=== PATIENT | female | born 1955 | race Caucasian/White ===

== ENCOUNTER 2016-12-15 06:34 | Inpatient (IN) | payer BC ==
[2016-11-19 13:31] VITALS: BMI 31.0
--- NOTE | 2016-11-19 14:08 | PAT Medication Instructions ---
Service Date November 19, 2016. Current Home Medication List Albuterol Hfa (Ventolin Hfa), 2-4 PUFFS INH Q6H PRN for PRN Aspirin (Aspirin Ec), 81 MG PO QAM Benazepril (Lotensin), 20 MG PO QAM Biotin (Biotin), 5,000 MCG PO QAM Cinnamon (Cinnamon), 1,000 MG PO BID Fish Oil ([place]-3), 1 CAP PO QAM Hydrochlorothiazide (Hydrochlorothiazide), 1 TAB PO QAM Meloxicam (Mobic), 15 MG PO QPM Niacin (Niacin), 500 MG PO QAM Simvastatin (Zocor), 20 MG PO HS Turmeric (Curcuma Longa) (Turmeric), 1,000 MG PO QPM [Calcium], 600 MG PO QAM [Glucosamine D], 1 TAB PO QPM Medication Instructions For Your Scheduled Surgery - Check with surgeon for instructions: Meloxicam (Mobic), 15 MG PO QPM - Hold the following medications 2 weeks prior to surgery: [Glucosamine D], 1 TAB PO QPM Turmeric (Curcuma Longa) (Turmeric), 1,000 MG PO QPM Cinnamon (Cinnamon), 1,000 MG PO BID Fish Oil ([place]-3), 1 CAP PO QAM - Hold the following medications the morning of surgery: [Calcium], 600 MG PO QAM Niacin (Niacin), 500 MG PO QAM Hydrochlorothiazide (Hydrochlorothiazide), 1 TAB PO QAM Benazepril (Lotensin), 20 MG PO QAM Biotin (Biotin), 5,000 MCG PO QAM - Take the following medications the morning of surgery with a sip of water: Albuterol Hfa (Ventolin Hfa), 2-4 PUFFS INH Q6H PRN for PRN (bring with you to hospital morning of surgery) Aspirin (Aspirin Ec), 81 MG PO QAM - Take the following medications as scheduled the night before surgery: Simvastatin (Zocor), 20 MG PO HS Albuterol Hfa (Ventolin Hfa), 2-4 PUFFS INH Q6H PRN for PRN If you have any questions please call us at [phone] (Alyssa Kidd PA-C ) or [phone] or [phone]
--- NOTE | 2016-11-19 14:36 | DIAGNOSTIC IMAGING REPORT ---
CHEST PREADMISSION(PA/LAT) CLINICAL HISTORY: Preoperative chest COMPARISON STUDY: No previous studies for comparison. FINDINGS: The cardiac and mediastinal contours are normal. There is no evidence of focal pulmonary consolidation. There is no evidence of failure. No pleural effusions are visualized.[ There is mild basilar interstitial thickening/atelectasis. There are postsurgical changes present within the cervical spine. IMPRESSION: No active disease in the chest. Electronically signed by: Luis Angel Portillo M.D. 11/19/2016 2:35 PM Dictated Date/Time: 11/19/2016 2:34 PM
[2016-11-19 15:02] LABS: BASO % 0.2 %; BASO ABS # 0.01 K/uL (0-0.2); COMPLETE YES; EOS % 4.2 %; HEMATOCRIT 42.7 % (37-47); LYMPH % 23.5 %; LYMPH ABS # 1.35 K/uL (1.2-3.4); MEAN CELL VOLUME 82.8 fL (80-100); MEAN CORPUSCULAR HEMOGLOBIN 26.2 pg (25-34); MEAN CORPUSCULAR HGB CONC 31.6 g/dl (32-36); MEAN PLATELET VOLUME 9.5 fL (7.4-10.4); MONO % 5.9 %; NEUT % 66.2 %; PLATELET COUNT 256 K/uL (130-400); RED BLOOD COUNT 5.16 M/uL (4.2-5.4); WHITE BLOOD COUNT 5.74 K/uL (4.8-10.8)
[2016-11-19 15:11] LABS: BUN/CREATININE RATIO 23.8 (10-20); CALCIUM 9.3 mg/dl (8.5-10.1); CREATININE 0.83 mg/dl (0.60-1.20); POTASSIUM 4.1 mmol/L (3.5-5.1)
[2016-11-19 15:21] LABS: URINE APPEARANCE CLEAR (CLEAR); URINE BILIRUBIN NEG (NEG); URINE COLOR YELLOW; URINE NITRITE NEG (NEG); URINE SPECIFIC GRAVITY 1.016 (1.000-1.030); UROBILINOGEN NEG (NEG); ZZUR CULT IF INDIC CLEAN CATCH NO
[2016-11-19 15:23] LABS: INR 0.9 (0.9-1.1); PARTIAL THROMBOPLASTIN RATIO 1.1; PROTHROMBIN TIME (PATIENT) 9.9 SECONDS (9.0-12.0)
[2016-11-19 15:29] LABS: MANUAL MICROSCOPIC REQUIRED? NO; REVIEW REQ? NO
[2016-12-15] VITALS (10 sets, daily range): BP systolic 92–162; BP diastolic 56–80; PULSE 54–87; TEMP 36.5–36.7; O2SAT 95–100; Ht 167.6 cm; Wt 87.0 kg
[~2016-12-15] VITALS: Ht 167.6 cm; Wt 87.0 kg
[2016-12-15] MEDS: TRANEXAMIC ACID INJ 1,000 MG in SODIUM CHLORIDE 0.9% 100ML 100 ML IV SCH ×2 (06:30→08:12)
[~2016-12-15 06:34] MED LIST: ACETAMINOPHEN 500 MG TAB PO SCH; ASPI81TA28 PO; BENA20TA14 PO; BIOT1CAP3 PO; BUPIVACAINE 0.25% 30 ML VIAL ONE; BUPIVACAINE 0.5 % 5 MG/1 ML PF 10ML VIAL ONE; CALC-51 PO; CEFAZOLIN 2000 MG/60 ML D5W 60 ML IV SCH; CINN1CAP2 PO; FAMOTIDINE 20 MG TAB PO SCH; GABAPENTIN 300 MG CAP PO SCH; HYDR12.55 PO; LACTATED RINGER'S 1000ML 1,000 ML IV SCH; LACTATED RINGER'S 1000ML 500 ML IV ONE; LACTATED RINGER'S 1000ML IV SCH; MELO7.5T5 PO; METOCLOPRAMIDE HCL 10 MG TAB PO SCH; NIAC500T11 PO; OMEG10007 PO; OXYCODONE HCL 10 MG TABCR (OXYCONTIN) PO SCH; POLYMYXIN B SULFATE 100,000 UNITS in NSS 100ML IR SCH; ROPIVACAINE 5MG/ML 30 ML 150 MG, BUPIVACAINE/EPINEPHR 0.5% MPF 30 ML, KETOROLAC TROMETH... INFIL SCH; SIMV20TA2 PO; TURM500T PO; VANCOMYCIN INJ 400 MG in NSS 100ML IR SCH; VNTHFA/IN INH; [UNRECOGNIZED DRUG - OTHER] PO
[2016-12-15] MEDS ORDERED: MIDAZOLAM HCL 1 MG/ML 2ML VIAL ONE (06:42)
--- NOTE | 2016-12-15 06:47 | History and Physical ---
History & Physical Date December 15, 2016. Chief Complaint R KNEE PAIN History of Present Illness The patient is a 61 year old female with complaints of R GREATER THAN L KNEE PAIN FOR OVER 3 YEARS . 9/10 AFFECTS ADLS CANNOT WALK 1 BLOCK. HAS TRIED BRACING PHYSICAL THERAPY AND INJECTIONS WITHOUT RELIEF . XRAYS CW SEVERE OA OF KNEES W VARUS DEFORMITY. Additional History Hepatic Disease: No Endocrine Disorder: Yes Hypertension: Yes Heart Disease: No Bleeding Tendencies: No Infectious Diseases: No Other: ASTHMA, HYPERLIPIDEMEA Allergies Coded Allergies: Aromatic Oils (Verified Allergy, Unknown, DRY THROAT COUGHING, ITCHY EYES, STUFFY NOSE, 12/09/16) Buckwheat (Verified Allergy, Unknown, WITH BUCKWHEAT PANCAKES-SOB,HIVES, ) BUCKWHEAT CONTACT ITCHY SKIN POLLEN (Verified Allergy, Unknown, STUFFY NOSE,ITCHY EYES, 12/09/16) Sulfa Antibiotics (Verified Allergy, Unknown, BLUE HANDS AND FEET, LIPS, ) Home Medications Scheduled Aspirin (Aspirin Ec), 81 MG PO QAM Benazepril (Lotensin), 20 MG PO QAM Biotin (Biotin), 5,000 MCG PO QAM Cinnamon (Cinnamon), 1,000 MG PO BID Fish Oil ([place]-3), 1 CAP PO QAM Hydrochlorothiazide (Hydrochlorothiazide), 1 TAB PO QAM Meloxicam (Mobic), 15 MG PO QPM Niacin (Niacin), 500 MG PO QAM Simvastatin (Zocor), 20 MG PO HS Turmeric (Curcuma Longa) (Turmeric), 1,000 MG PO QPM [Calcium], 600 MG PO QAM [Glucosamine D], 1 TAB PO QPM Scheduled PRN Albuterol Hfa (Ventolin Hfa), 2-4 PUFFS INH Q6H PRN for PRN Physical Examination Skin: warm/dry, no rash Eyes: normal inspection, EOMI, sclerae normal ENT: normal ENT inspection, pharynx normal Head: normocephalic, atraumatic Neck: supple, no adenopathy, trachea midline Respiratory/Chest: lungs clear, normal breath sounds, no respiratory distress Abdomen / GI: normal bowel sounds, non tender Back: normal inspection, + pertinent finding (BILAT VARUS DEFORMTIY ROM 5 TO 110 3 MM MEDIAL LAXITY MOD EFFUSION ) Neurologic/Psych: no motor/sensory deficits, alert, normal reflexes, oriented x 3 Diagnosis ENDSTAGE DJD KNEE HTN ASTHMA TYPE 2 DM ASA Classification: ASA Class III Plan of Treatment R TKA
[2016-12-15] MEDS ORDERED: BACITRACIN 50000 UNIT VIAL ONE (07:16)
[2016-12-15] MEDS ORDERED: BUPIVACAINE/EPINEPHRINE 0.25% 1:200,000 30 ML VIAL ONE (07:16)
[2016-12-15] MEDS ORDERED: POVIDONE-IODINE OP SOLN 30 ML BTL ONE (07:16)
[2016-12-15] MEDS ORDERED: ORTHO JOINT ANESTHETIC ONE (07:16)
[2016-12-15] MEDS ORDERED: ONDANSETRON INJ 2 MG/ML 2 ML VIAL ONE (08:39)
[2016-12-15] MEDS ORDERED: PROPOFOL IV EMULSION 10 MG/ML 20 ML VIAL IV ONE ×2 (08:39→10:01)
[2016-12-15] MEDS ORDERED: LIDOCAINE HCL 2% 2 ML VIAL (20MG/ML) ONE (08:39)
[2016-12-15] MEDS ORDERED: LABETALOL HCL IV 5 MG/ML 20ML IV ONE (08:46)
[2016-12-15] MEDS ORDERED: KETOROLAC TROMETHAMINE 30 MG/ML VIAL IV. PRN (09:00)
[2016-12-15] MEDS ORDERED: PHENYLEPHRINE 100MCG/ML 5ML SYR IV PRN (09:00)
[2016-12-15] MEDS ORDERED: ATROPINE SULFATE 0.1 MG/ML 5ML SYR IV PRN (09:00)
[2016-12-15] MEDS ORDERED: EpHEDrine SULFATE INJ 50 MG/ML AMP IV PRN (09:00)
[2016-12-15] MEDS ORDERED: ONDANSETRON INJ 2 MG/ML 2 ML VIAL IV PRN ×2 (09:00→09:45)
[2016-12-15] MEDS ORDERED: HYDROmorphone INJ 2 MG/ML SYR/VIAL IV PRN (09:00)
--- NOTE | 2016-12-15 09:35 | [facility] Post Operative Brief Note ---
Immediate Operative Summary Operative Date December 15, 2016. Pre-Operative Diagnosis Right Knee Degenerative Joint Disease Post-Operative Diagnosis Right Knee Degenerative Joint Disease Procedure(s) Performed Right Total Knee Arthroplasty Surgeon Dr. Bruce Gonzalez Diesel Bus Mechanic Surgeon(s) DONYA Self Estimated Blood Loss 75 ml Findings DJD Specimens A. Right Knee Bone and Tissue Complication(s) None Disposition Recovery Room / PACU
[2016-12-15] MEDS ORDERED: ZOLPIDEM TARTRATE 5 MG TAB PO PRN (09:45)
[2016-12-15] MEDS ORDERED: TRAMADOL HCL 50 MG TAB PO PRN (09:45)
[2016-12-15] MEDS ORDERED: ALBUTEROL HFA 8 GM INHALER INH PRN (09:45)
[2016-12-15] MEDS ORDERED: MoRPHine SULFATE 2 MG/ML CARP IV PRN (09:45)
[2016-12-15] MEDS ORDERED: SOD PHOSPHATE/SOD BIPHOSPHATE ENEMA 132 ML BTL PR PRN (09:45)
[2016-12-15] MEDS ORDERED: BISACODYL 10 MG SUPP PR PRN (09:45)
[2016-12-15] MEDS ORDERED: METOCLOPRAMIDE HCL INJ 5 MG/ML 2 ML VIAL IV PRN (09:45)
[2016-12-15] MEDS ORDERED: DiphenhydrAMINE HCL 50 MG/ML VIAL IV PRN (09:45)
[2016-12-15] MEDS ORDERED: MAGNESIUM HYDROXIDE SUSP 30 ML UDC PO PRN (09:45)
[2016-12-15] MEDS ORDERED: PHARMACY GLYCEMIC MGMT CONSULT PRN (10:03)
--- NOTE | 2016-12-15 10:31 | DIAGNOSTIC IMAGING REPORT ---
RIGHT KNEE 2 VIEWS History: Right total knee arthroplasty. Degenerative arthritis. Postop. FINDINGS: The patient is status post a right total knee arthroplasty. The hardware is intact. No fracture or dislocation. Surgical drains are in place. IMPRESSION: Right total knee arthroplasty. No evidence for hardware complication. Electronically signed by: Hector Deleon M.D. 12/15/2016 10:29 AM Dictated Date/Time: 12/15/2016 10:28 AM
[2016-12-15] MEDS ORDERED: GLUCAGON FOR INJ 1 MG VIAL SQ PRN (12:00)
[2016-12-15] MEDS ORDERED: GLUCOSE 10 TABS/TUBE PO PRN (12:00)
[2016-12-15] MEDS ORDERED: DEXTROSE 50% 50 ML SYR IV PRN (12:00)
[2016-12-15] MEDS ORDERED: GLUCOSE 40% GEL 15 GM TUBE PO PRN (12:00)
--- NOTE | 2016-12-15 12:08 | Anesthesiology Progress Note ---
Anesthesia Post Op Note Date & Time December 15, 2016 at 12:09 Vital Signs Pain Intensity: 0 Vital Signs Past 12 Hours Date Time Temp Pulse Resp B/P Pulse Ox O2 Delivery O2 Flow Rate FiO2 12/15/16 11:30 57 16 109/71 95 2.0 12/15/16 11:00 Nasal Cannula 2.0 12/15/16 11:00 Nasal Cannula 2.0 12/15/16 10:55 36.5 64 16 101/65 100 Nasal Cannula 2.0 12/15/16 10:45 63 12 114/60 99 Nasal Cannula 2 12/15/16 10:35 36.2 65 14 104/59 98 Nasal Cannula 2 12/15/16 10:25 68 18 124/54 99 Nasal Cannula 2 12/15/16 10:15 70 16 112/61 98 Nasal Cannula 2 12/15/16 10:08 36.4 73 16 98/67 98 Nasal Cannula 2 12/15/16 07:01 96 Room Air 12/15/16 06:58 36.7 87 16 162/80 Notes Mental Status: alert / awake / arousable, participated in evaluation Pt Amnestic to Procedure: Yes Nausea / Vomiting: adequately controlled Pain: adequately controlled Airway Patency, RR, SpO2: stable & adequate BP & HR: stable & adequate Hydration State: stable & adequate Anesthetic Complications: no major complications apparent
--- NOTE | 2016-12-15 12:21 | Pharmacy Progress Note ---
Glycemic Control Intl Consult Date of Service December 15, 2016. Scope Glycemic Pharmacist consulted by Dr Gonzalez on 12/15/16 for glycemic control and to write orders per [facility] inpatient glycemic control protocol Objective Weight (Kilograms): 87.00 Accuchecks BSG (last 24hrs): Test 12/15/16 07:02 12/15/16 10:13 Bedside Glucose 140 mg/dl (70-90) 146 mg/dl (70-90) Recent Pertinent Medications Outpatient Anti-diabetic Regimen: * none * A1c - ordered for 12/16 Risk Factors for Insulin Resistance: * Steroids: ortho mix x 1 pre-op (contains dexamethasone 4 mg) * Recent Surgery - POD #0 R-TKA * Diet Assessment & Plan ASSESSMENT: * ADA & AACE recommend a goal blood sugar range 140-180 mg/dl for the majority of critically ill & non-critically ill patients. However, more stringent targets may be selected in individual cases. Will utilize more stringent goal of 110-140 mg/dl based on patient age & comorbidities. Additionally, tighter glycemic control is warranted to facilitate wound/infection healing. * 61 year old female s/p right TKA. Patient does not have a documented history of diabetes. No A1c available at this time. * Patient will be placed on basal + bolus insulin regimen in an attempt to maintain euglycemia while admitted. PLAN FOR INPATIENT GLYCEMIC CONTROL: * Basal insulin - Lantus to be given per scale ONLY if BSG is greater than 140 mg/dL * 10 units for BSG 140-180 mg/dL * 15 units for BSG 181-200 mg/dL * 20 untis for BSG greater than 200 mg/dL * Correctional Insulin with NOVOLOG per scale ACHS * Goal Range: Low 110 mg/dL - High 140 mg/dL * Correction Factor: 25 mg/dL/unit * Overnight checks with coverage at 00 and 04 since patient is POD #0 and insulin needs are uncertain * Please note that the plan above was derived based on current level of insulin resistance and hospital stress. These recommendations are appropriate for inpatient admission only. Plan of care upon discharge will need to be reassessed to avoid potential outpatient hypo/hyperglycemia. Thank you.
[2016-12-15] MEDS: INSULIN ASPART 100 UNITS/ML 3 ML PEN SC SCH ×3 (12:30→21:38)
[2016-12-15] MEDS: SODIUM CHLORIDE 0.9% 1000ML 1,000 ML IV SCH ×2 (13:23→23:00)
[2016-12-15] MEDS ORDERED: TRANEXAMIC ACID INJ 1,000 MG in SODIUM CHLORIDE 0.9% 100ML 100 ML IV SCH (16:00)
[2016-12-15] MEDS: ACETAMINOPHEN 500 MG TAB PO SCH (16:15)
[2016-12-15] MEDS ORDERED: NURSING VERBAL MED ORDER ONE ×2 (18:00→18:15)
[2016-12-15] MEDS ORDERED: NICOTINE 21 MG/24 HR TDSY TD SCH (18:30)
[2016-12-15] MEDS: FERROUS GLUCONATE 324 MG TAB PO SCH (19:04)
[2016-12-15] MEDS: OXYCODONE HCL IR 5 MG TAB (IMMEDIATE RELEASE) PO PRN (19:09)
[2016-12-15] MEDS ORDERED: INSULIN GLARGINE SOLOSTAR 100 UNITS/ML 3 ML PEN SC SCH (21:00)
[2016-12-15] MEDS: ASPIRIN 81 MG ECTAB PO SCH (21:32)
[2016-12-15] MEDS: SENNA 8.6 MG TAB PO SCH (21:33)
[2016-12-15] MEDS: CEFAZOLIN IV 2,000 MG in DEXTROSE 5% 50ML 50 ML IV SCH (21:41)
[2016-12-16] VITALS (10 sets, daily range): BP systolic 99–129; BP diastolic 53–78; PULSE 58–84; TEMP 36.3–36.6; O2SAT 88–99
[2016-12-16] MEDS: ACETAMINOPHEN 500 MG TAB PO SCH ×4 (00:09→23:51)
[2016-12-16] MEDS: INSULIN ASPART 100 UNITS/ML 3 ML PEN SC SCH ×6 (03:42→22:00)
[2016-12-16] MEDS: CEFAZOLIN IV 2,000 MG in DEXTROSE 5% 50ML 50 ML IV SCH (05:30)
[2016-12-16 06:51] LABS: HEMATOCRIT 34.1 % (37-47); MEAN CELL VOLUME 81.6 fL (80-100); MEAN CORPUSCULAR HEMOGLOBIN 25.8 pg (25-34); MEAN CORPUSCULAR HGB CONC 31.7 g/dl (32-36); MEAN PLATELET VOLUME 9.3 fL (7.4-10.4); PLATELET COUNT 201 K/uL (130-400); RED BLOOD COUNT 4.18 M/uL (4.2-5.4); WHITE BLOOD COUNT 9.83 K/uL (4.8-10.8)
[2016-12-16 06:56] LABS: ESTIMATED AVERAGE GLUCOSE 154 mg/dl; HA1C FLAG Normal (Normal)
[2016-12-16 07:26] LABS: BUN/CREATININE RATIO 18.2 (10-20); CALCIUM 8.2 mg/dl (8.5-10.1); CREATININE 0.69 mg/dl (0.60-1.20)
--- NOTE | 2016-12-16 07:43 | DISCHARGE SUMMARY ---
DATE OF DISCHARGE: 12/16/16 DISCHARGE DIAGNOSIS: Degenerative joint disease, right knee. SECONDARY DIAGNOSIS: None. CONSULTS: None. COMPLICATIONS: None. PROCEDURE: The patient underwent a right total knee arthroplasty with Dr. Gonzalez on 12/15/2016. BRIEF HISTORY: Please see previously dictated history and physical. HOSPITAL SUMMARY: The patient was admitted on the above day for the above procedure. Procedure went without complication. Postop day 1, the patient was feeling well without complaints. She denied chest pain or shortness of breath. Vital signs were stable. She was afebrile. Dressing was clean, dry and intact. She was neurovascularly intact. Calves were soft and nontender. Hemovac drained 215 and 100 mL per shift. Hemoglobin was 10.8. The patient began physical therapy per protocol. She was discharged to home later that day in stable condition. For further review please see the chart. Lab, x-ray data and discharge instructions as per chart.
[2016-12-16] MEDS ORDERED: SNK PO (08:00)
[2016-12-16] MEDS ORDERED: ACET-1138 PO (08:00)
[2016-12-16] MEDS ORDERED: ASPI81TA28 PO (08:00)
[2016-12-16] MEDS ORDERED: RXC5 PO (08:00)
[2016-12-16] MEDS ORDERED: ONDA8TAB6 PO (08:00)
--- NOTE | 2016-12-16 08:01 | Discharge Instructions ---
Discharge Instructions Date of Service December 16, 2016. Admission Reason for Admission: Right Knee Degenerative Arthritis Discharge Discharge Diagnosis / Problem: SP RIGHT TKA Discharge Goals Goal(s): Decrease discomfort, Improve function, Increase independence Activity Recommendations Activity Limitations: per Instructions/Follow-up section . Instructions / Follow-Up Instructions / Follow-Up ACTIVITY RECOMMENDATIONS: SELF CARE INSTRUCTIONS AFTER TOTAL KNEE REPLACEMENT A. You may need to continue a physical therapy program after discharge from the hospital. There are several options available to you. Your doctor will assist you in selecting the best one for you. 1. An out-patient facility 2 to 3 times a week for therapy or home therapy. 2. Continue working on all exercises taught to you in the hospital. Your goals should be to increase bending of your knee to 90 degrees and beyond and to fully straighten your knee. B. You may progress at your own pace from walking with a walker or crutches to a cane; then to no assistive devices. C. Make walking a part of your daily routine. Be up as much as comfortable with rest periods throughout the day. Rest with leg elevation is very important. Use the ice wrap frequently for the first 3-4 weeks. D. There are no restrictions on activities. You may ride in a car, shop, participate in garment examiner and all social activities. E. Wear the long elastic stockings (CHANTEL hose) 20 hours a day for 2 weeks after surgery. They can be removed several times a day for laundering and for a bath. F. You may shower, no tub baths until cleared by your doctor. SPECIAL CARE INSTRUCTIONS: VERY IMPORTANT TO READ AND REVIEW A. There are a few signs you need to watch for after you are home. Call [facility] if you notice any of the followin. Increased severe knee pain. Some pain is expected especially when you exercise. 2. Increased swelling in your leg or knee; pain or swelling of the calf muscle in either lower leg. 3. Any fluid drainage from the incision. 4. Shortness of breath or chest pain. B. Please call [facility] at if you have any concerns or questions about your operation or recovery. The doctor or his nurse will return your call promptly. C. You must take antibiotics before dental work, bladder, bowel or other surgery. Your doctor will provide you with a permanent care to carry describing this precaution. IMPORTANT: * REMEMBER TO TAKE ASPIRIN, 81 MG, TWICE DAILY FOR 4 WEEKS UNLESS OTHERWISE DIRECTED. THIS IS YOUR BLOOD THINNER. * HIGH RISK PATIENTS MAY BE PRESCRIBED A STRONGER BLOOD THINNER. THIS WILL BE PROVIDED AT DISCHARGE. * CALL IF INCREASED PAIN, REDNESS, DRAINAGE OR FEVER GREATER THAT 101. * WEAR CHANTEL HOSE 20 HOURS PER DAY FOR 2 WEEKS. DERMABOND Prineo- This is a mesh tape dressing that is covered with glue. It should remain in place until the incision is properly healed, usually 10-14 days. This dressing is designed to naturally slough off. You may trim the excess mesh tape as it peels off. Incision may be briefly wet in a shower. Dry immediately by blotting with a clean, dry towel. Do not bath or swim until instructed by your doctor. Do not scratch, rub, or pick at the dressing. Do not apply any topical ointments or lotions until dressing is completely removed and/or instructed by your doctor. There may be a small piece of suture material at one end of your incision. Do not pull or trim this. If it is bothersome or catching on clothing, you may cover it with a band-aid. FOLLOW UP VISIT: If appointment is not already scheduled: Please call [facility] to make a follow-up appointment for 2 weeks after your surgery at . Current Hospital Diet Patient's current hospital diet: Diabetes Type 2 Diet Discharge Diet Recommended Diet: Regular Diet Procedures Procedures Performed: Right Total Knee Arthroplasty Pending Studies Studies pending at discharge: no Laboratory Results Hemoglobin A1c Test 12/16/16 06:33 Range/Units Estimated Average Glucose 154 mg/dl Hemoglobin A1c 7.0 H 4.5-5.6 % Medical Emergencies . Who to Call and When: Medical Emergencies: If at any time you feel your situation is an emergency, please call 911 immediately. . Non-Emergent Contact Non-Emergency issues call your: Surgeon . "Provider Documentation" section prepared by Brittney Weems. . VTE Core Measure Inpt VTE Proph given/why not?: Other Anticoagulation, T.E.D. Stockings, SCD's
[2016-12-16] MEDS: FERROUS GLUCONATE 324 MG TAB PO SCH ×3 (08:08→17:14)
[2016-12-16] MEDS: SODIUM CHLORIDE 0.9% 1000ML 1,000 ML IV SCH (08:08)
[2016-12-16] MEDS: PANTOprazole SOD 40 MG TAB PO SCH (08:12)
[2016-12-16] MEDS: NIACIN 500 MG TAB IMMEDIATE RELEASE PO SCH (08:12)
[2016-12-16] MEDS: HYDROCHLOROTHIAZIDE 25 MG TAB PO SCH (08:12)
[2016-12-16] MEDS: MULTIVITAMIN TAB PO SCH (08:12)
[2016-12-16] MEDS: ENALAPRIL MALEATE 10 MG TAB PO SCH (08:13)
--- NOTE | 2016-12-16 08:24 | OPERATIVE REPORT ---
DATE OF OPERATION: 12/15/2016 PREOPERATIVE DIAGNOSIS: Degenerative arthritis, right knee. POSTOPERATIVE DIAGNOSIS: Same. PROCEDURE: Right total knee with patient matched implant. SURGEON: Dr. Gonzalez. SOLAR DESIGNER: DONYA Self. ANESTHESIA: Spinal. BLOOD LOSS: 75 mL REPLACEMENT FLUIDS: 1800 mL of crystalloid. DRAINS: Hemovac x2. CULTURES: None. COMPLICATIONS: None. COMPONENTS USED: [employer] Knee System: Femur size 4, tibia size 3 x 9, patella size 35. NOTE: DONYA Self was present and assisted throughout due to the complicated nature of this case. He helped with preparation and setup, first assisted throughout and personally closed the capsule, subcutaneous and skin layers and applied the postoperative dressing. DESCRIPTION: Following satisfactory spinal, the patient was supine. A tourniquet was placed but not inflated. The lower extremity was prepared with ChloraPrep and draped sterilely. Following a surgical timeout, the midline incision was made with a median parapatellar arthrotomy. A trivector approach was completed and the knee showed grade 4 changes throughout. The cruciate ligaments were excised. The patient matched femoral block was applied. Femoral distal rotation and resection were set and completed. The 4-in-1 block was used to finish preparation of the femur. The patient matched tibial block was applied. Tibial resection was completed. The patella was freehand cut. Soft tissue balancing was completed and a trial reduction showed good tensioning stability on the collateral ligaments, stable range of motion, and the patella tracked well. The trial components were removed. The capsule was prepared with the orthopedic cocktail. Following irrigation, the components were cemented using Simplex G cement. A Betadine soak was performed. When the cement had hardened, the Betadine was irrigated. Two drains were placed. The arthrotomy was closed with a running suture of 0 V-Loc. The subcutaneous tissues with 2-0 Vicryl and the skin with a running subcuticular stitch of 3-0 V-Loc. Dermabond and a dry dressing were applied. The patient was returned to her bed in stable condition. I attest to the content of the Intraoperative Record and any orders documented therein. Any exceptio ns are noted below.
[2016-12-16] MEDS: ASPIRIN 81 MG ECTAB PO SCH ×2 (08:36→21:04)
[2016-12-16] MEDS ORDERED: NON-FORMULARY MEDICATION (Biotin 5,000 MCG) PO SCH (09:00)
[2016-12-16] MEDS: ALUMINUM/MAGNESIUM/SIMETH (MAALOX MAX) 30 ML UDC PO PRN ×2 (09:13→17:53)
[2016-12-16] MEDS: KETOROLAC TROMETHAMINE 30 MG/ML VIAL IV. PRN ×2 (11:46→21:05)
[2016-12-16] MEDS ORDERED: SIMVASTATIN 20 MG TAB PO SCH (21:00)
[2016-12-16] MEDS ORDERED: INSULIN GLARGINE SOLOSTAR 100 UNITS/ML 3 ML PEN SC SCH (21:00)
[2016-12-16] MEDS: SENNA 8.6 MG TAB PO SCH (21:04)
[2016-12-17 00:04] VITALS: BP 115/72; PULSE 72; TEMP 36.8; O2SAT 95
[2016-12-17] MEDS: ACETAMINOPHEN 500 MG TAB PO SCH (07:35)
[2016-12-17 07:39] VITALS: BP 118/78; PULSE 73; TEMP 36.6; O2SAT 99
--- NOTE | 2016-12-17 07:48 | Orthopedic Progress Note ---
Orthopedic Progress Note Date of Service Dec 17, 2016. Subjective Post OP Day: 2 Reports: feeling well, Denies: chest pain, SOB, nausea / vomiting, light headedness, calf pain Additional Notes: PATIENT HAD ISSUES YESTERDAY WITH VASOVAGAL SYNCOPE. DISCHARGE WAS HELD. FEELING MUCH BETTER TODAY. NO COMPLAINTS. Objective calves soft nontender, N/V intact, incision C/D/I, A&O x3, toes mobile Date Time Temp Pulse Resp B/P (MAP) Pulse Ox O2 Delivery O2 Flow Rate FiO2 12/17/16 00:04 36.8 72 18 115/72 (86) 95 Room Air 12/16/16 23:45 Room Air 12/16/16 19:15 36.4 82 18 119/72 (88) 99 Room Air 12/16/16 16:15 Room Air 12/16/16 15:15 36.3 84 18 99/70 (80) 98 Room Air 12/16/16 11:07 67 16 129/78 (95) 99 Nasal Cannula 2.0 12/16/16 10:30 73 88 12/16/16 09:12 75 16 117/70 (86) 96 Room Air 12/16/16 09:10 74 16 99/53 (68) 96 Room Air 12/16/16 07:50 96 Room Air 12/16/16 07:49 97 Room Air Assessment & Plan Assessment: POD#1 SP RIGHT TKA Inhouse Planning Pain Management: PO Tylenol, Oxy IR DVT Prophylaxis: TEDs, SCDs, ASA Discharge Planning Discharge Planning: home with home health (IN HOME TODAY WITH ADVANTAGE. )
[2016-12-17 07:55] VITALS: O2SAT 99
[2016-12-17] MEDS: INSULIN ASPART 100 UNITS/ML 3 ML PEN SC SCH ×2 (08:44→12:00)
[2016-12-17] MEDS: HYDROCHLOROTHIAZIDE 25 MG TAB PO SCH (08:49)
[2016-12-17] MEDS: ASPIRIN 81 MG ECTAB PO SCH (08:49)
[2016-12-17] MEDS: FERROUS GLUCONATE 324 MG TAB PO SCH ×2 (08:49→12:30)
[2016-12-17] MEDS: MULTIVITAMIN TAB PO SCH (08:50)
[2016-12-17] MEDS: NIACIN 500 MG TAB IMMEDIATE RELEASE PO SCH (08:50)
[2016-12-17] MEDS: ENALAPRIL MALEATE 10 MG TAB PO SCH (08:50)
[2016-12-17] MEDS: PANTOprazole SOD 40 MG TAB PO SCH (08:53)
[2016-12-17] MEDS: OXYCODONE HCL IR 5 MG TAB (IMMEDIATE RELEASE) PO PRN ×2 (08:56→14:46)
[2016-12-17 12:31] VITALS: BP 118/78; PULSE 73; TEMP 36.6; O2SAT 99
== END 2016-12-17 15:00 | disposition home health service (06) | DRG 470 ==
LOC: ENRESERVDT → ENRESERVTM → C.ACU 06:34 → C.3E 09:38
PROVIDERS: ADMIT Orthopaedic Surgery; ATTEND Orthopaedic Surgery
PROC: 0SRC0J9 Replacement of Right Knee Joint with Synthetic Substitute, Cemented, Open Approach (ICD-10-PCS; principal; 2016-12-15 08:15)
DX: M17.11 Unilateral primary osteoarthritis, right knee (principal); M21.161 Varus deformity, not elsewhere classified, right knee; R55 Syncope and collapse; I10 Essential (primary) hypertension; E11.9 Type 2 diabetes mellitus without complications; J45.909 Unspecified asthma, uncomplicated; E78.5 Hyperlipidemia, unspecified; E66.9 Obesity, unspecified; Z68.31 Body mass index [BMI] 31.0-31.9, adult; Z79.82 Long term (current) use of aspirin; Z79.1 Long term (current) use of non-steroidal anti-inflammatories (NSAID); Z79.899 Other long term (current) drug therapy